=== PATIENT | male | born 1950 | race Caucasian/White ===

== ENCOUNTER → 2017-05-27 | Outpatient (CLI) | payer BC ==
[~2017-05-27] MED LIST: AMBIEN10 MG PO; ARTHROTEC EC 71 EACH PO; ASPIR-LOW81 MG PO; CALCIUM + VITA1 EACH PO; CRANBERRY TABL1 EACH PO; CYCLOBENZAPRINE5 MG PO; FISH OIL500 M1 PO; GARLIC500 MG PO; GLUCOSAMIN-CHO1 EACH PO; HYDROCHLOROTH12.5 MG PO; HYDROCHLOROTHIAZIDE PO; INNOPRAN XL80 MG PO; LEVOTHYROXINE50 MCG PO; LEVOXYL; LEVOXYL50 MCG PO; LIPITOR; LIPITOR10 MG PO; LIPITOR20 MG PO; LOVENOX60 MG/0.6 SQ; MAGNESIUM250 MG PO; MECLIZINE HCL12.5 MG PO; MELATONIN3 M1 PO; MELOXICAM7.5 MG PO; METAMUCIL PACK1 EACH PO; METFORMIN HCL500 MG PO; MULTIVITAMIN PO; NAPRELAN750 MG PO; NEXIUM40 MG PO; NORCO 7.5-3251 EACH PO; POTASSIUM PO; PROPRANOLOL; PROPRANOLOL HCL60 MG PO; SENNA S TABLET1 EACH PO; ULTRAM 50MG50 MG PO; VITAMIN C500 MG PO; VITAMIN E1000 UNI1 PO; ZINC30 M1 PO
--- NOTE | 2017-05-27 08:59 | Diagnostic Imaging Report ---
PROCEDURE:C-SPINE AP AND LAT WITH FLEX AND EXT COMPARISON:Cervical spine 2 views 04/30/2017. INDICATIONS:POST OP NECK SURGERY C-SPINE IN MARCH FINDINGS: The lateral view is visualized from the skull base to C7. Postoperative changes of anterior discectomy and interbody fusion of C4/C5. Stable multilevel degenerative disc disease and facet arthropathy. The vertebral bodies are well-aligned. There are no fractures, lytic or blastic lesions. The disc-space heights are well-maintained. The C1/C2-odontoid interval is normal. The pre-vertebral soft tissues are normal. CONCLUSION: Postoperative changes as above. Dictated by: Raul Daly M.D. on 05/27/2017 at 9:07 Electronically approved by: Raul Daly M.D. on 05/27/2017 at 9:07
== END ==
LOC: RAD 07:59
PROVIDERS: ATTEND Neurological Surgery
DX: M50.20 Other cervical disc displacement, unspecified cervical region (principal); Z98.1 Arthrodesis status
CPT/HCPCS: 72050

== ENCOUNTER → 2018-02-17 | Outpatient (CLI) | payer MEDICARE ==
--- NOTE | 2018-02-18 08:38 | Diagnostic Imaging Report ---
TECHNIQUE: Magnetic resonance imaging of the RIGHT ANKLE was performed WITHOUT injected contrast. HISTORY: RUPTURE OF RT ACHILLES TENDON COMPARISON: None available. FINDINGS: LIGAMENTS: Medial Complex: Intact fibers with mild focal delamination of the deep fibers. Lateral Complex: The tibiofibular ligaments are intact. The anterior talofibular ligament is not visible. The calcaneofibular ligament is mildly thickened with increased intrasubstance signal. The posterior talofibular ligament is intact. TENDONS: Medial: Intact, small to moderate volume of fluid adjacent to the distal flexor hallucis longus tendon along the plantar aspect of the foot. Lateral: Intact, and accessory peroneal myotendinous junction posterior to the distal fibula, but only to tendons are visible distal to the tip of the lateral malleolus. This is compatible with an anatomic variant. Anterior: Intact Achilles: Complete tear of the Achilles tendon 3.3 cm proximal to the calcaneal insertion. Prominent asymmetric tendon retraction, the complete defect measures 2.5 cm (CC). Paucity of associated edema. BONES: No focal or infiltrative bone marrow replacing abnormality. No acute fracture or osteonecrosis. Large plantar calcaneal spur. Mild Sky deformity of the calcaneus. JOINTS: Cartilage: No focal defect involving the tibiotalar joint. Mild multifocal degenerative changes. Other: Fluid within the joints is within physiologic limits. SOFT TISSUES: Otherwise, unremarkable. IMPRESSION: 1. 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 2. Mild Sky deformity of the calcaneus. 3. 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 4. Scarring of the calcaneofibular ligament and deltoid ligament. 5. Mild flexor hallucis longus sclerosing tenosynovitis. 6. Mild multifocal osteoarthrosis. Signed by: Dr. Davian El D.O., M.M.M. on 02/18/2018 8:33 AM
== END ==
LOC: MRI 16:32
PROVIDERS: ATTEND Family Medicine
DX: S86.011A Strain of right Achilles tendon, initial encounter (principal)

== ENCOUNTER → 2019-12-07 | Day surgery (SDC) | payer OTHER, BC ==
[2019-12-01 09:08] LABS: BASOPHILS # (AUTO) 0.1 (0.0-0.1); BASOPHILS % 0.6 % (0.0-1.0); EOSINOPHILS # (AUTO) 0.3 (0.0-0.4); EOSINOPHILS % 3.8 % (0.0-6.0); HEMOGLOBIN 15.1 g/dL (14.0-18.0); LYMPHOCYTES # (AUTO) 2.4 (1.0-3.2); LYMPHOCYTES % 28.8 % (18.0-39.1); MEAN CORPUSCULAR HEMOGLOBIN 30.8 pg (28-32); MEAN CORPUSCULAR HGB CONC 33.6 g/dL (31-35); MEAN CORPUSCULAR VOLUME 91.8 fL (81-99); MONOCYTES # (AUTO) 0.6 (0.2-0.8); MONOCYTES % 7.3 % (4.4-11.3); NEUTROPHILS # (AUTO) 4.9 (2.1-6.9); PLATELET COUNT 271 x10e3/uL (140-360); RED CELL DISTRIBUTION WIDTH 12.6 % (11.7-14.4)
[~2019-12-07] MED LIST changes: +CHROMIUM400 MCG PO; +FLOMAX0.4 MG PO; +GLUCAGON FOR INJ 1 MG VIAL ONE; +HYOSCYAMINE 0.125 MG TAB ONE; +LIDOCAINE HCL 2% LOCAL INJ 5 ML SDV VIAL INJ ONE; +PROPOFOL IV EMULSION 10 MG/ML 20 ML VIAL ONE
[2019-12-07 09:10] VITALS: BP 128/99
--- NOTE | 2019-12-07 09:25 | Operative Report ---
DATE OF PROCEDURE: 12/07/2019 SURGEON: Darien Gray MD PROCEDURE: Colonoscopy with polypectomy. INDICATIONS FOR COLONOSCOPY: Surveillance colonoscopy, personal history of polyps. MEDICATIONS: The patient was done under MAC, please see anesthesiologist's note. PROCEDURE IN DETAIL: With the patient in the left lateral decubitus position, a flexible fiberoptic Olympus colonoscope was inserted into the rectum with ease and advanced all the way to the cecum. The cecum appeared to be within normal limits. The ileocecal valve also appeared to be within normal limits that was intubated with ease and the scope was advanced into the terminal ileum. A minute polypoid lesion was noted in the terminal ileum and that was excised with the cold biopsy forceps. The scope was then withdrawn back into the colon. It was then withdrawn slowly. Mucosa overlying the ascending, transverse, descending, and sigmoid appeared to be within normal limits. A minute polyp was noted in the distal rectum and that was removed per the hot biopsy forceps. The scope was then retroflexed into the distal rectum and small internal hemorrhoids were noted, none of which was actively bleeding. Also hypertrophied anal papillae were noted. The scope was then straightened out, it was subsequently withdrawn, and the patient tolerated the procedure well. IMPRESSION: 1. Terminal ileum polyp, minute, removed per the cold biopsy forceps. 2. Rectal polyp, hot biopsied. 3. Internal hemorrhoids, none actively bleeding. 4. Hypertrophied anal papillae. PLAN: Follow up histology. Initiate high-fiber, low-fat diet. Initiate high-fiber supplement. The patient might benefit from a followup colonoscopy in 5 years. Darien Gray MD [facility] [place] /[id number] cc: Oscar Madden DO
== END | disposition home or self-care (01) ==
LOC: OR 05:39
PROVIDERS: ATTEND Internal Medicine Gastroenterology
DX: Z09 Encounter for follow-up examination after completed treatment for conditions other than malignant neoplasm (principal); K63.5 Polyp of colon; K62.1 Rectal polyp; K64.8 Other hemorrhoids; K62.89 Other specified diseases of anus and rectum; G47.33 Obstructive sleep apnea (adult) (pediatric); E11.9 Type 2 diabetes mellitus without complications; E03.9 Hypothyroidism, unspecified; I10 Essential (primary) hypertension; Z01.810 Encounter for preprocedural cardiovascular examination; Z01.812 Encounter for preprocedural laboratory examination; Z11.59 Encounter for screening for other viral diseases; Z79.84 Long term (current) use of oral hypoglycemic drugs; Z68.33 Body mass index [BMI] 33.0-33.9, adult; Z87.891 Personal history of nicotine dependence
CPT/HCPCS: 36415; 45378; 45384; 82948; 85025; 93005; J1610; J2001; U0002

== ENCOUNTER → 2020-07-29 | Day surgery (SDC) | payer BC, MEDICARE ==
[2020-07-22 12:17] LABS: BASOPHILS % 0.5 % (0.0-1.0); EOSINOPHILS # (AUTO) 0.4 (0.0-0.4); EOSINOPHILS % 5.5 % (0.0-6.0); HEMATOCRIT 37.3 % (38.2-49.6); HEMOGLOBIN 12.9 g/dL (14.0-18.0); LYMPHOCYTES # (AUTO) 2.3 (1.0-3.2); LYMPHOCYTES % 31.3 % (18.0-39.1); MEAN CORPUSCULAR HGB CONC 34.6 g/dL (31-35); MEAN CORPUSCULAR VOLUME 89.7 fL (81-99); MONOCYTES # (AUTO) 0.9 (0.2-0.8); MONOCYTES % 11.5 % (4.4-11.3); NEUTROPHILS # (AUTO) 3.8 (2.1-6.9); NEUTROPHILS % 50.7 % (38.7-80.0); PLATELET COUNT 293 x10e3/uL (140-360); RED BLOOD COUNT 4.16 x10e6/uL (4.3-5.7); RED CELL DISTRIBUTION WIDTH 12.7 % (11.7-14.4)
[2020-07-22 12:29] LABS: INR 0.89; PROTHROMBIN TIME 12.6 seconds (11.9-14.5)
[2020-07-22 12:37] LABS: ALBUMIN 3.6 g/dL (3.5-5.0); ALBUMIN/GLOBULIN RATIO 1.2 (0.8-2.0); ANION GAP 14.6 mmol/L (8-16); CALCIUM 9.8 mg/dL (8.4-10.2); CREATININE, SERUM 1.55 mg/dL (0.72-1.25)
[2020-07-22 12:40] LABS: POTASSIUM 2.6 mmol/L (3.5-5.1)
[2020-07-25 07:32] VITALS: BP 143/81
[~2020-07-29] VITALS: Ht 177.8 cm; Wt 101.6 kg
[2020-07-29] VITALS (11 sets, daily range): BP systolic 98–124; BP diastolic 72–85
[~2020-07-29] MED LIST changes: +CINNAMON500 MG PO; +FENTANYL CITRATE/PF 100MCG/2 ML INJ ONE; -GLUCAGON FOR INJ 1 MG VIAL ONE; +HEPARIN SOD (PORCINE) 1000 UNIT/ML 30ML ONE; +HEPARIN SOD/SOD CHLORIDE 2,000 ML ONE; -HYOSCYAMINE 0.125 MG TAB ONE; +IOPAMIDOL 300MG/ML 100 ML INFUS..BTL IV ONE; +LIDOCAINE HCL 2% LOCAL 20 ML VIAL ONE; -LIDOCAINE HCL 2% LOCAL INJ 5 ML SDV VIAL INJ ONE; +MIDAZOLAM HCL 2 MG/2 ML VIAL ONE; +NITROGLYCERIN/D5W 200 MCG/ML 250 ML ONE; -PROPOFOL IV EMULSION 10 MG/ML 20 ML VIAL ONE; +SODIUM CHLORIDE 0.9% 1000ML 1,000 ML ONE
== END | disposition home or self-care (01) ==
LOC: EDSTATUS 07-25 09:00 → CATH LAB 06:03
PROVIDERS: ATTEND Internal Medicine Cardiovascular Disease
DX: I25.10 Atherosclerotic heart disease of native coronary artery without angina pectoris (principal); I87.1 Compression of vein; Z01.812 Encounter for preprocedural laboratory examination; Z20.822 Contact with and (suspected) exposure to COVID-19
CPT/HCPCS: 36012; 36415 ×2; 37252; 76937; 80053; 82948; 85025; 85610; C1753; C1766; C1769; J1644; J2001; J2250; J3010; J7030; Q9967; U0002 ×2; 37253; 99152; 99153

== ENCOUNTER 2020-09-08 10:07 | Observation (INO) | payer BC, MEDICARE ==
[~2020-09-08] VITALS: Ht 177.8 cm; Wt 93.9 kg
[~2020-09-08 10:07] MED LIST changes: -FENTANYL CITRATE/PF 100MCG/2 ML INJ ONE; -HEPARIN SOD (PORCINE) 1000 UNIT/ML 30ML ONE; -HEPARIN SOD/SOD CHLORIDE 2,000 ML ONE; -IOPAMIDOL 300MG/ML 100 ML INFUS..BTL IV ONE; -LIDOCAINE HCL 2% LOCAL 20 ML VIAL ONE; -MIDAZOLAM HCL 2 MG/2 ML VIAL ONE; -NITROGLYCERIN/D5W 200 MCG/ML 250 ML ONE; -SODIUM CHLORIDE 0.9% 1000ML 1,000 ML ONE
[2020-09-08] MEDS ORDERED: ONDANSETRON HCL INJ 2MG/ML 2ML 2 MG/ML VIAL IV STA (10:25)
[2020-09-08] MEDS ORDERED: SODIUM CHLORIDE 0.9% 1000ML 1,000 ML IV STA (10:25)
[2020-09-08] MEDS ORDERED: HYDROCODONE/APAP 5MG-325MG TAB PO ONE (10:30)
[2020-09-08 11:23] LABS: BASOPHILS % 0.5 % (0.0-1.0); EOSINOPHILS # (AUTO) 0.3 (0.0-0.4); EOSINOPHILS % 5.4 % (0.0-6.0); HEMATOCRIT 38.6 % (38.2-49.6); HEMOGLOBIN 13.2 g/dL (14.0-18.0); LYMPHOCYTES % 32.1 % (18.0-39.1); MEAN CORPUSCULAR HGB CONC 34.2 g/dL (31-35); MEAN CORPUSCULAR VOLUME 93.5 fL (81-99); MONOCYTES # (AUTO) 0.6 (0.2-0.8); MONOCYTES % 9.6 % (4.4-11.3); NEUTROPHILS # (AUTO) 3.3 (2.1-6.9); NEUTROPHILS % 52.1 % (38.7-80.0); PLATELET COUNT 289 x10e3/uL (140-360); RED BLOOD COUNT 4.13 x10e6/uL (4.3-5.7); RED CELL DISTRIBUTION WIDTH 12.4 % (11.7-14.4)
[2020-09-08 11:30] LABS: CLARITY,URINE CLEAR (CLEAR); COLOR,URINE YELLOW (YELLOW)
[2020-09-08 11:31] LABS: INR 0.81; KETONES,URINE NEGATIVE (NEGATIVE); LEUKOCYTE ESTERASE ,URINE NEGATIVE (NEGATIVE); NITRITE,URINE NEGATIVE (NEGATIVE); PROTEIN,URINE DIPSTICK NEGATIVE (NEGATIVE); PROTHROMBIN TIME 11.8 seconds (11.9-14.5); URINE UROBILINOGEN 0.2 mg/dL (0.2 - 1)
[2020-09-08 11:32] LABS: PARTIAL THROMBOPLASTIN TIME 26.7 seconds (23.8-35.5)
[2020-09-08 11:38] LABS: BACTERIA,URINE RARE /HPF; EPITHELIAL CELLS,URINE FEW /LPF; RBC,URINE 0-5 /HPF (0-5)
[2020-09-08 11:41] LABS: ALBUMIN 3.6 g/dL (3.5-5.0); ALBUMIN/GLOBULIN RATIO 1.3 (0.8-2.0); CALCIUM 9.5 mg/dL (8.4-10.2); CREATININE, SERUM 1.52 mg/dL (0.72-1.25); MAGNESIUM 1.6 MG/DL (1.3-2.1)
[2020-09-08 11:48] LABS: CREATINE KINASE MB 1.6 ng/mL (0-5.0)
[2020-09-08] MEDS ORDERED: POTASSIUM CHLORIDE 20 MEQ TAB CR PO STA (13:40)
[2020-09-08] MEDS ORDERED: SODIUM CHLORIDE 0.9% 50ML 50 ML ONE (13:59)
[2020-09-08] MEDS ORDERED: IOPAMIDOL 370 MG/ML 200 ML INFUS..BTL INJ ONE (13:59)
[2020-09-08] MEDS: SODIUM CHLORIDE 0.9% 1000ML 1,000 ML IV SCH ×2 (14:04→21:31)
[2020-09-08] MEDS ORDERED: METHYLPREDNISOLONE SOD SUCC 125 MG/2ML VIAL ONE (14:10)
[2020-09-08] MEDS ORDERED: METHYLPREDNISOLONE SOD SUCC 125 MG/2ML VIAL IV ONE (14:15)
[2020-09-08] MEDS ORDERED: POTASSIUM CHLORIDE 10MEQ EA PO ONE (16:00)
[2020-09-08 16:09] VITALS: BP 118/72
[2020-09-08 16:18] VITALS: BP 118/72
[2020-09-08] MEDS: MORPHINE SULFATE INJ 2 MG/ML SYR IV PRN ×2 (16:26→21:38)
[2020-09-08 16:35] VITALS: BP 118/72
[2020-09-08 18:30] LABS: CREATINE KINASE MB 1.5 ng/mL (0-5.0)
[2020-09-08] MEDS ORDERED: METOLAZONE5 MG PO (19:28)
[2020-09-08 19:52] VITALS: BP 119/79
[2020-09-08] MEDS ORDERED: GLYBURIDE5 MG PO (19:53)
[2020-09-08] MEDS ORDERED: ROBAXIN-750750 MG PO (19:53)
[2020-09-08] MEDS ORDERED: CYCLOBENZAPRINE10 MG PO (19:53)
[2020-09-08] MEDS ORDERED: LASIX40 MG PO (19:53)
[2020-09-08] MEDS ORDERED: ATORVASTATIN CA10 MG PO (19:53)
[2020-09-08 20:00] VITALS: BP 119/79
[2020-09-08] MEDS ORDERED: METHOCARBAMOL 750 MG TAB PO PRN (20:15)
[2020-09-08] MEDS ORDERED: GLYBURIDE 5 MG TAB PO SCH (20:15)
[2020-09-08] MEDS ORDERED: DEXTROSE 50% SYRINGE 50 ML IV PRN (20:15)
[2020-09-08] MEDS ORDERED: METHOCARBAMOL 500 MG TAB PO PRN (21:15)
[2020-09-08] MEDS: ATORVASTATIN 10 MG TAB PO SCH (21:38)
[2020-09-08] MEDS: ONDANSETRON HCL INJ 2MG/ML 2ML 2 MG/ML VIAL IV PRN (21:38)
[2020-09-08] MEDS: INSULIN LISPRO 100 UNIT/1 ML 3ML VIAL SQ SCH (21:38)
[2020-09-08] MEDS ORDERED: GLIPIZIDE 5 MG TAB PO ONE (22:15)
[2020-09-09] VITALS (8 sets, daily range): BP systolic 109–123; BP diastolic 65–85
[2020-09-09 02:26] LABS: CHOL/HDL RATIO 3.8 (3.9-4.7)
[2020-09-09 03:58] LABS: CREATINE KINASE 71 IU/L (30-200)
[2020-09-09] MEDS: LEVOTHYROXINE SODIUM 50 MCG TAB PO SCH (05:31)
[2020-09-09 07:09] LABS: BASOPHILS % 0.3 % (0.0-1.0); EOSINOPHILS % 0.3 % (0.0-6.0); HEMATOCRIT 36.6 % (38.2-49.6); HEMOGLOBIN 12.5 g/dL (14.0-18.0); LYMPHOCYTES # (AUTO) 1.6 (1.0-3.2); LYMPHOCYTES % 15.3 % (18.0-39.1); MEAN CORPUSCULAR HEMOGLOBIN 31.6 pg (28-32); MEAN CORPUSCULAR HGB CONC 34.2 g/dL (31-35); MEAN CORPUSCULAR VOLUME 92.4 fL (81-99); MONOCYTES % 9.3 % (4.4-11.3); NEUTROPHILS # (AUTO) 7.7 (2.1-6.9); NEUTROPHILS % 74.1 % (38.7-80.0); PLATELET COUNT 293 x10e3/uL (140-360); RED BLOOD COUNT 3.96 x10e6/uL (4.3-5.7); RED CELL DISTRIBUTION WIDTH 12.2 % (11.7-14.4)
[2020-09-09] MEDS: ONDANSETRON HCL INJ 2MG/ML 2ML 2 MG/ML VIAL IV PRN ×2 (07:22→21:06)
[2020-09-09] MEDS: MORPHINE SULFATE INJ 2 MG/ML SYR IV PRN ×4 (07:22→21:07)
[2020-09-09] MEDS: INSULIN LISPRO 100 UNIT/1 ML 3ML VIAL SQ SCH ×4 (07:30→21:32)
[2020-09-09 08:10] LABS: ALBUMIN 3.1 g/dL (3.5-5.0); ALBUMIN/GLOBULIN RATIO 1.2 (0.8-2.0); ANION GAP 11.8 mmol/L (8-16); CALCIUM 8.7 mg/dL (8.4-10.2); CREATININE, SERUM 1.35 mg/dL (0.72-1.25); POTASSIUM 3.8 mmol/L (3.5-5.1)
[2020-09-09 08:32] LABS: CREATINE KINASE MB 1.3 ng/mL (0-5.0)
[2020-09-09] MEDS: PANTOPRAZOLE SOD 40 MG TABEC PO SCH (08:56)
[2020-09-09] MEDS: TAMSULOSIN HCL 0.4 MG CAP PO SCH (08:57)
[2020-09-09] MEDS: PROPRANOLOL HCL 80 MG CAPCR PO SCH (08:57)
[2020-09-09] MEDS: SODIUM CHLORIDE 0.9% 1000ML 1,000 ML IV SCH (09:31)
[2020-09-09] MEDS ORDERED: METHYLPREDNISOLONE SOD SUCC 40 MG/ML VIAL 1ML IV ONE ×2 (10:00→18:30)
[2020-09-09] MEDS: GLYBURIDE 5 MG TAB PO SCH (12:07)
[2020-09-09] MEDS: CYCLOBENZAPRINE HCL 10 MG TAB PO PRN (12:18)
[2020-09-09 17:06] LABS: ANION GAP 13.2 mmol/L (8-16); CALCIUM 8.5 mg/dL (8.4-10.2); CREATININE, SERUM 1.3 mg/dL (0.72-1.25); POTASSIUM 4.2 mmol/L (3.5-5.1)
[2020-09-09] MEDS ORDERED: METHOCARBAMOL 750 MG TAB PO PRN (17:15)
[2020-09-09] MEDS: METFORMIN HCL 500 MG TAB PO SCH (18:20)
[2020-09-09] MEDS: ATORVASTATIN 10 MG TAB PO SCH (21:04)
[2020-09-10 00:41] VITALS: BP 108/66
[2020-09-10 05:34] VITALS: BP 110/74
[2020-09-10] MEDS: MORPHINE SULFATE INJ 2 MG/ML SYR IV PRN ×2 (05:40→09:39)
[2020-09-10] MEDS: ONDANSETRON HCL INJ 2MG/ML 2ML 2 MG/ML VIAL IV PRN (05:40)
[2020-09-10] MEDS: LEVOTHYROXINE SODIUM 50 MCG TAB PO SCH (05:44)
[2020-09-10 07:19] LABS: ANION GAP 13.6 mmol/L (8-16); BLOOD UREA NITROGEN 19 mg/dL (7-26); BUN/CREATININE RATIO 16 (6-25); CALCIUM 8.2 mg/dL (8.4-10.2); CARBON DIOXIDE 27 mmol/L (22-29); CHLORIDE 103 mmol/L (98-107); CREATININE, SERUM 1.19 mg/dL (0.72-1.25); EST GLOMERULAR FILTRATION RATE > 60 ML/MIN (60-); GLUCOSE 132 mg/dL (74-118); POTASSIUM 3.6 mmol/L (3.5-5.1); SODIUM 140 mmol/L (136-145)
[2020-09-10] MEDS: INSULIN LISPRO 100 UNIT/1 ML 3ML VIAL SQ SCH (07:30)
[2020-09-10 07:34] LABS: BASOPHILS % 0.2 % (0.0-1.0); EOSINOPHILS % 0.1 % (0.0-6.0); HEMATOCRIT 36.3 % (38.2-49.6); HEMOGLOBIN 12.5 g/dL (14.0-18.0); LYMPHOCYTES # (AUTO) 2.1 (1.0-3.2); LYMPHOCYTES % 17.2 % (18.0-39.1); MEAN CORPUSCULAR HEMOGLOBIN 31.9 pg (28-32); MEAN CORPUSCULAR HGB CONC 34.4 g/dL (31-35); MEAN CORPUSCULAR VOLUME 92.6 fL (81-99); MONOCYTES # (AUTO) 0.8 (0.2-0.8); MONOCYTES % 6.8 % (4.4-11.3); NEUTROPHILS # (AUTO) 9.1 (2.1-6.9); PLATELET COUNT 288 x10e3/uL (140-360); RED BLOOD COUNT 3.92 x10e6/uL (4.3-5.7); RED CELL DISTRIBUTION WIDTH 12.4 % (11.7-14.4)
[2020-09-10 07:53] VITALS: BP 185/82
[2020-09-10] MEDS ORDERED: K-DUR10 MEQ PO (08:55)
[2020-09-10] MEDS ORDERED: ULTRACET TABLE1 EACH PO (08:57)
[2020-09-10] MEDS ORDERED: MEDROL4 MG PO (08:58)
[2020-09-10 09:00] VITALS: BP 131/74
[2020-09-10] MEDS ORDERED: METHYLPREDNISOLONE SOD SUCC 40 MG/ML VIAL 1ML IV ONE (09:15)
[2020-09-10] MEDS: PANTOPRAZOLE SOD 40 MG TABEC PO SCH (09:34)
[2020-09-10] MEDS: METFORMIN HCL 500 MG TAB PO SCH (09:34)
[2020-09-10] MEDS: TAMSULOSIN HCL 0.4 MG CAP PO SCH (09:34)
[2020-09-10] MEDS: GLYBURIDE 5 MG TAB PO SCH (09:34)
[2020-09-10] MEDS: PROPRANOLOL HCL 80 MG CAPCR PO SCH (09:35)
[2020-09-10] MEDS: CYCLOBENZAPRINE HCL 10 MG TAB PO PRN (09:36)
== END 2020-09-10 10:40 | disposition home or self-care (01) ==
LOC: ER 10:48 → ERHOLD 14:00 → MED/SURG3 15:10
PROVIDERS: ADMIT Internal Medicine; ATTEND Internal Medicine
DX: M54.12 Radiculopathy, cervical region (principal); N17.9 Acute kidney failure, unspecified; E87.6 Hypokalemia; R07.89 Other chest pain; Z20.822 Contact with and (suspected) exposure to COVID-19; Z79.4 Long term (current) use of insulin; M50.30 Other cervical disc degeneration, unspecified cervical region; M51.34 Other intervertebral disc degeneration, thoracic region; M51.36 Other intervertebral disc degeneration, lumbar region; I13.0 Hypertensive heart and chronic kidney disease with heart failure and stage 1 through stage 4 chronic kidney disease, or unspecified chronic kidney disease; E11.22 Type 2 diabetes mellitus with diabetic chronic kidney disease; N18.9 Chronic kidney disease, unspecified; I50.9 Heart failure, unspecified; M48.03 Spinal stenosis, cervicothoracic region
CPT/HCPCS: 36415 ×3; 71045; 71260; 72141; 72146; 80048 ×2; 80053 ×2; 80061; 81001; 82550 ×2; 82553 ×2; 82948 ×3; 83735; 83880; 84484 ×2; 85025 ×3; 85610; 85730; 87086; 93005; 93306; 99284; G0378 ×3; J2270 ×3; J2405 ×3; J2920 ×2; J2930; J7030 ×2; Q9967; S0164 ×2; U0002

== ENCOUNTER 2021-10-13 12:15 | Emergency (ER) | payer BC, MEDICARE ==
[~2021-10-13] VITALS: Ht 177.8 cm; Wt 93.9 kg
[~2021-10-13 12:15] MED LIST changes: +ATORVASTATIN CA10 MG PO; +CYCLOBENZAPRINE10 MG PO; +GLYBURIDE5 MG PO; +K-DUR10 MEQ PO; +LASIX40 MG PO; +MEDROL4 MG PO; +METOLAZONE5 MG PO; +ROBAXIN-750750 MG PO; +ULTRACET TABLE1 EACH PO
[2021-10-13] MEDS ORDERED: PAXLOVID CO-PA1 EACH PO (15:39)
== END 2021-10-13 15:56 | disposition home or self-care (01) ==
LOC: ER 13:36
DX: U07.1 COVID-19 (principal); I10 Essential (primary) hypertension; E78.5 Hyperlipidemia, unspecified; E03.9 Hypothyroidism, unspecified; K21.9 Gastro-esophageal reflux disease without esophagitis; E78.00 Pure hypercholesterolemia, unspecified
CPT/HCPCS: 71045; 99283; U0002

== ENCOUNTER 2022-02-17 12:58 | Observation (INO) | payer BC, MEDICARE ==
[~2022-02-17] VITALS: Ht 177.8 cm; Wt 93.9 kg
[~2022-02-17 12:58] MED LIST changes: +PAXLOVID CO-PA1 EACH PO
[2022-02-17 14:19] LABS: BASOPHILS # (AUTO) 0.1 (0.0-0.1); BASOPHILS % 0.5 % (0.0-1.0); EOSINOPHILS # (AUTO) 0.2 (0.0-0.4); EOSINOPHILS % 2.1 % (0.0-6.0); HEMATOCRIT 44.3 % (38.2-49.6); LYMPHOCYTES # (AUTO) 2.7 (1.0-3.2); MEAN CORPUSCULAR HGB CONC 33.9 g/dL (31-35); MEAN CORPUSCULAR VOLUME 94.5 fL (81-99); MONOCYTES # (AUTO) 1.1 (0.2-0.8); MONOCYTES % 11.5 % (4.4-11.3); NEUTROPHILS # (AUTO) 5.3 (2.1-6.9); NEUTROPHILS % 56.5 % (38.7-80.0); PLATELET COUNT 281 x10e3/uL (140-360); RED BLOOD COUNT 4.69 x10e6/uL (4.3-5.7); RED CELL DISTRIBUTION WIDTH 12.7 % (11.7-14.4)
[2022-02-17 14:24] LABS: INR 0.91; PROTHROMBIN TIME 13.1 seconds (11.9-14.5)
[2022-02-17 14:34] LABS: ALBUMIN 4.5 g/dL (3.5-5.0); ALBUMIN/GLOBULIN RATIO 1.5 (0.8-2.0); ANION GAP 20.3 mmol/L (8-16); CALCIUM 10.4 mg/dL (8.4-10.2); CREATININE, SERUM 2.51 mg/dL (0.72-1.25); MAGNESIUM 2.2 MG/DL (1.3-2.1); POTASSIUM 3.3 mmol/L (3.5-5.1)
[2022-02-17] MEDS ORDERED: SODIUM CHLORIDE 0.9% 1000ML 1,000 ML IV ONE (15:15)
[2022-02-17] MEDS ORDERED: ONDANSETRON HCL INJ 2MG/ML 2ML 2 MG/ML VIAL IV PRN (16:00)
[2022-02-17] MEDS: SODIUM CHLORIDE 0.9% 1000ML 1,000 ML IV SCH ×3 (16:21→23:28)
[2022-02-17 20:22] VITALS: BP 122/78
[2022-02-17 21:10] VITALS: BP 122/78
[2022-02-17] MEDS ORDERED: MYSOLINE50 MG PO (21:27)
[2022-02-17] MEDS ORDERED: SENNA LAX8.6 MG PO (21:27)
[2022-02-17] MEDS ORDERED: FISH OIL 1,001000 M1 PO (21:27)
[2022-02-17] MEDS ORDERED: LIPITOR10 MG PO (21:27)
[2022-02-17] MEDS ORDERED: GLIPIZIDE5 MG PO (21:27)
[2022-02-17 21:40] VITALS: BP 122/78
[2022-02-18] VITALS (10 sets, daily range): BP systolic 101–124; BP diastolic 55–79
[2022-02-18] MEDS: SODIUM CHLORIDE 0.9% 1000ML 1,000 ML IV SCH ×3 (04:49→22:06)
[2022-02-18 05:43] LABS: BASOPHILS % 0.6 % (0.0-1.0); EOSINOPHILS # (AUTO) 0.3 (0.0-0.4); EOSINOPHILS % 4.6 % (0.0-6.0); HEMATOCRIT 37.1 % (38.2-49.6); HEMOGLOBIN 12.2 g/dL (14.0-18.0); LYMPHOCYTES # (AUTO) 2.3 (1.0-3.2); LYMPHOCYTES % 37.5 % (18.0-39.1); MEAN CORPUSCULAR HEMOGLOBIN 31.8 pg (28-32); MEAN CORPUSCULAR HGB CONC 32.9 g/dL (31-35); MEAN CORPUSCULAR VOLUME 96.6 fL (81-99); MONOCYTES # (AUTO) 0.7 (0.2-0.8); MONOCYTES % 10.4 % (4.4-11.3); NEUTROPHILS # (AUTO) 2.9 (2.1-6.9); NEUTROPHILS % 46.6 % (38.7-80.0); PLATELET COUNT 207 x10e3/uL (140-360); RED BLOOD COUNT 3.84 x10e6/uL (4.3-5.7); RED CELL DISTRIBUTION WIDTH 12.5 % (11.7-14.4)
[2022-02-18 06:12] LABS: ANION GAP 14.4 mmol/L (8-16); CALCIUM 8.4 mg/dL (8.4-10.2); CREATININE, SERUM 1.45 mg/dL (0.72-1.25); POTASSIUM 3.4 mmol/L (3.5-5.1)
[2022-02-18] MEDS ORDERED: DEXTROSE 50% SYRINGE 50 ML IV PRN (08:30)
[2022-02-18] MEDS: LEVOTHYROXINE SODIUM 50 MCG TAB PO SCH (09:00)
[2022-02-18] MEDS: INSULIN LISPRO 100 UNIT/1 ML 3ML VIAL SQ SCH ×3 (11:30→20:55)
[2022-02-18] MEDS: MECLIZINE HCL 12.5 MG TAB PO SCH ×4 (12:00→23:56)
[2022-02-18] MEDS: ASCORBIC ACID 500 MG TAB PO SCH ×2 (13:55→16:58)
[2022-02-18] MEDS: TAMSULOSIN HCL 0.4 MG CAP PO SCH (13:55)
[2022-02-18] MEDS: SENNOSIDES 8.6 MG TAB PO SCH (13:56)
[2022-02-18] MEDS: PROPRANOLOL HCL 80 MG CAPCR PO SCH (13:56)
[2022-02-18] MEDS ORDERED: ONDANSETRON HCL 4 MG ORAL DISINTEGRATING TAB PO PRN (19:30)
[2022-02-18] MEDS ORDERED: PRIMIDONE 50 MG TAB PO SCH (21:00)
[2022-02-18] MEDS ORDERED: ATORVASTATIN 10 MG TAB PO SCH (21:00)
[2022-02-18] MEDS ORDERED: MAGNESIUM/ALUMINUM/SIMETHICONE 30 ML UDC PO PRN (21:30)
[2022-02-19 04:30] VITALS: BP 113/76
[2022-02-19 05:21] LABS: BASOPHILS % 0.3 % (0.0-1.0); EOSINOPHILS # (AUTO) 0.3 (0.0-0.4); EOSINOPHILS % 4.3 % (0.0-6.0); HEMATOCRIT 36.1 % (38.2-49.6); HEMOGLOBIN 11.8 g/dL (14.0-18.0); LYMPHOCYTES # (AUTO) 1.9 (1.0-3.2); LYMPHOCYTES % 29.3 % (18.0-39.1); MEAN CORPUSCULAR HGB CONC 32.7 g/dL (31-35); MEAN CORPUSCULAR VOLUME 97.8 fL (81-99); MONOCYTES # (AUTO) 0.7 (0.2-0.8); NEUTROPHILS # (AUTO) 3.6 (2.1-6.9); NEUTROPHILS % 55.6 % (38.7-80.0); PLATELET COUNT 187 x10e3/uL (140-360); RED BLOOD COUNT 3.69 x10e6/uL (4.3-5.7); RED CELL DISTRIBUTION WIDTH 12.6 % (11.7-14.4)
[2022-02-19 05:35] LABS: ANION GAP 13.6 mmol/L (8-16); CALCIUM 7.9 mg/dL (8.4-10.2); CREATININE, SERUM 0.93 mg/dL (0.72-1.25); POTASSIUM 3.6 mmol/L (3.5-5.1)
[2022-02-19] MEDS: MECLIZINE HCL 12.5 MG TAB PO SCH (06:15)
[2022-02-19] MEDS: LEVOTHYROXINE SODIUM 50 MCG TAB PO SCH (06:15)
[2022-02-19] MEDS ORDERED: PANTOPRAZOLE SOD 40 MG TABEC PO SCH (07:30)
[2022-02-19] MEDS: TAMSULOSIN HCL 0.4 MG CAP PO SCH (07:35)
[2022-02-19] MEDS: ASCORBIC ACID 500 MG TAB PO SCH (07:35)
[2022-02-19] MEDS: SENNOSIDES 8.6 MG TAB PO SCH (07:36)
[2022-02-19] MEDS: PROPRANOLOL HCL 80 MG CAPCR PO SCH (07:43)
[2022-02-19] MEDS: INSULIN LISPRO 100 UNIT/1 ML 3ML VIAL SQ SCH (07:47)
[2022-02-19 08:36] VITALS: BP 134/92
[2022-02-19 08:53] VITALS: BP 134/92
== END 2022-02-19 10:08 | disposition home or self-care (01) ==
LOC: ER 13:19 → ERHOLD 16:01 → INTOOBSV 16:01 → MED/SURG 20:08
PROVIDERS: ADMIT Internal Medicine; ATTEND Internal Medicine
DX: N17.0 Acute kidney failure with tubular necrosis (principal); H81.10 Benign paroxysmal vertigo, unspecified ear; E87.2 Acidosis; E11.9 Type 2 diabetes mellitus without complications; Z79.84 Long term (current) use of oral hypoglycemic drugs; T38.3X5A Adverse effect of insulin and oral hypoglycemic [antidiabetic] drugs, initial encounter; T50.2X5A Adverse effect of carbonic-anhydrase inhibitors, benzothiadiazides and other diuretics, initial encounter; Z20.822 Contact with and (suspected) exposure to COVID-19; E03.9 Hypothyroidism, unspecified; K21.9 Gastro-esophageal reflux disease without esophagitis; E87.1 Hypo-osmolality and hyponatremia; E86.0 Dehydration
CPT/HCPCS: 0223U; 36415 ×3; 70450; 70551; 71045; 80048 ×2; 80053; 82550; 82948 ×2; 83735; 84484; 85025 ×3; 85610; 93005; 96372; 99284; G0378 ×3; J7030 ×3; J8597 ×2; S0164